=== PATIENT | male | born 1985 | race Two or more races ===

== ENCOUNTER 2020-11-12 14:15 | Emergency (ER) | payer MEDICAID ==
[~2020-11-12] VITALS: Ht 160 cm; Wt 65.8 kg
--- NOTE | 2020-11-12 14:30 | NUR ---
AT BEDSIDE FOR EVAL.
--- NOTE | 2020-11-12 15:00 | NUR ---
[facility] FROM THE [facility], TO ER BED 13. AWAKE BUT LETHARGIC. NOT IN RESP DISTRESS. BREATHING EVEN AND UNLABORED. BROUGHT INFOR WITNESSED SEIZURE THAT WAS REPORTED TO HAVE LASTED 2 MIN. NO NOTED ORAL TRAUMA. NO REPORTS OF HEAD TRAUMA, NO NOTED VISUAL HEAD INJURY. PT WAS REPORTED TO HAVE HX OF SEIZURE. PT WAS GIVEN ATIVAN 2MG IM AND KEPRA 1000MG ORALLY AT THE [facility]. SEIZURE PRECAUTION IN PLACE. MD WAS AT THE BEDSIDE FOR EVAL. ORDERS RECEIVED, NOTED AND CARRIED OUT. IV LINE ESTABLISHED ON THE R WRIST 18G, BLOOD DRAWN AND GIVEN TO PHLEB AT BEDSIDE. PT ON MONITOR
[2020-11-12 15:08] LABS: BASOPHILS % (AUTO) 1.1 % (0.0-2.0); EOSINOPHILS % (AUTO) 0.3 % (0.0-6.0); HEMATOCRIT 38 % (39-51); HEMOGLOBIN 12.9 g/dL (13.5-17.5); LYMPHOCYTES # (AUTO) 0.4 K/uL (0.8-4.8); LYMPHOCYTES % (AUTO) 8.8 % (20.0-44.0); MEAN CORPUSCULAR HGB CONC 34 g/dl (31.0-36.0); MEAN CORPUSCULAR VOLUME 93 fL (80-96); MONOCYTES # (AUTO) 0.5 K/uL (0.1-1.30); MONOCYTES % (AUTO) 12.1 % (2.0-12.0); NEUTROPHILS # (AUTO) 3.3 K/uL (1.8-8.9); NEUTROPHILS % (AUTO) 77.7 % (43.0-81.0); PLATELET COUNT (AUTO) 82 K/uL (150-450); RED BLOOD CELL COUNT(AUTO) 4.04 MIL/uL (4.5-6.0); WHITE BLOOD COUNT (AUTO) 4.3 K/uL (4.3-11.0)
--- NOTE | 2020-11-12 15:08 | NUR ---
PT TO CT ON JOSE
--- NOTE | 2020-11-12 15:15 | NUR ---
PT IS BACK FROM THE CT SCAN. PT IS AAOX2, NOT IN RESPIRATORY DISTRESS, MOVED TO ER BED 10, HOOKED TO FREIGHT DISPATCHER, KEPT RESTED AND COMFORTABLE. WILL CONTINUE TO MONITOR.
--- NOTE | 2020-11-12 15:20 | NUR ---
2ND IV LINE ESTABLISHED. G18 L AC.
[2020-11-12 15:24] LABS: CALCIUM, SERUM 8.7 mg/dL (8.5-10.1); CARBON DIOXIDE 27 mmol/L (21-32); CHLORIDE 102 mmol/L (98-107); CREATININE 0.5 mg/dL (0.6-1.3); GLUCOSE 124 mg/dL (74-106); POTASSIUM 3.6 mmol/L (3.5-5.1); SODIUM SERUM 141 mmol/L (136-145); UREA NITROGEN, BLOOD 5 mg/dL (7-18)
[2020-11-12 15:30] LABS: ALANINE AMINOTRANSFERASE 79 U/L (12-78); ALBUMIN 3.9 g/dL (3.4-5.0); ALCOHOL, BLOOD 34 mg/dL (0-0); ALKALINE PHOSPHATASE 119 U/L (46-116); ASPARTATE AMINOTRANSFERASE 210 U/L (15-37); BILIRUBIN,TOTAL 1.6 mg/dL (0.2-1.0); TOTAL PROTEIN, SERUM 8.4 g/dL (6.4-8.2)
--- NOTE | 2020-11-12 15:40 | NUR ---
PT IS WHEELED TO CT SCAN VIA [facility].
--- NOTE | 2020-11-12 15:42 | NUR ---
[facility]ED [facility]HER LEVEL OF CARE TRANSFER. IF PATIENT IS TRAUMA NEED TO GO THROUGH [facility]. IF ITS ONLY HIGHER LEVEL CALL THEM BACK FOR HIGHER LEVEL.
--- NOTE | 2020-11-12 15:43 | NUR ---
CALLED [facility] FOR HIGHER LEVEL OF CARE TRAUMA, TRANSFERED ME TO ER AND AWAITING ER ATTENDING CALL BACK FOR [facility].
--- NOTE | 2020-11-12 15:53 | NUR ---
COVID SPECIMEN OBTAINED AND SENT TO LAB.
--- NOTE | 2020-11-12 16:05 | NUR ---
CALLED [facility] FOR HIGHER LEVEL OF CARE TRAUMA TRANSFER. WANTS US TO FAX CLINICALS TO [phone].
--- NOTE | 2020-11-12 16:24 | NUR ---
RECEIVED A CALL FROM EFE AT [facility] FOR TRAUMA TRANSFER. ACCEPTED TO [place] UNDER THE CARE OF DR. KINGSLEY TRAUMA SURGEON.
--- NOTE | 2020-11-12 16:29 | NUR ---
CALLED [facility] FOR TRANSFER TO [facility]. ETA 20 MINUTES.
--- NOTE | 2020-11-12 16:34 | NUR ---
REPORT GIVEN TO [facility] FOR [facility].
[2020-11-12] MEDS ORDERED: ONDANSETRON HCL/PF 4 MG/2 ML VIAL ONE (16:36)
[2020-11-12 16:47] VITALS: BP 145/75
[2020-11-12] MEDS ORDERED: ONDANSETRON HCL/PF - ER 4 MG/2 ML VIAL IV ONE (17:00)
--- NOTE | 2020-11-12 17:00 | NUR ---
REPORT GIVEN TO EMS FOR PT TRANSFER TO [facility] FOR [facility].
== END 2020-11-12 17:03 | disposition short-term general hospital (02) ==
LOC: ER 14:17
DX: S06.5X9A Traumatic subdural hemorrhage with loss of consciousness of unspecified duration, initial encounter (principal); R40.2421 Glasgow coma scale score 9-12, in the field [EMT or ambulance]; X58.XXXA Exposure to other specified factors, initial encounter; Y92.149 Unspecified place in prison as the place of occurrence of the external cause; S06.6X9A Traumatic subarachnoid hemorrhage with loss of consciousness of unspecified duration, initial encounter; W19.XXXA Unspecified fall, initial encounter; D69.6 Thrombocytopenia, unspecified; G40.909 Epilepsy, unspecified, not intractable, without status epilepticus; F10.239 Alcohol dependence with withdrawal, unspecified; Y90.1 Blood alcohol level of 20-39 mg/100 ml; I45.2 Bifascicular block; Z20.822 Contact with and (suspected) exposure to COVID-19; F17.200 Nicotine dependence, unspecified, uncomplicated
CPT/HCPCS: 36415; 70450; 71045; 72125; 80048; 80076; 80320; 82962 ×2; 83735; 84484; 85025; 87426; 93005; 96374; 99291; C9803; J2405 ×2; G0480